=== PATIENT | male | born 1990 | race Caucasian/White ===

== ENCOUNTER 2023-01-22 07:18 | Day surgery (SDC) | payer BC ==
[~2023-01-22 07:18] MED LIST: Lactated Ringers 1,000 ML IV SCH; Sodium Chloride 0.9% 10 ML Syringe FLUSH PRN
[2023-01-22] MEDS ORDERED: Propofol 200 MG/20 ML SDV IV ONE (07:19)
[2023-01-22] MEDS ORDERED: Midazolam 1 MG/ML 2 ML SDV IV ONE (07:19)
[2023-01-22] MEDS ORDERED: Simethicone Drops 40 MG/0.6 ML 30 ML Bottle ONE (09:03)
== END 2023-01-22 10:28 | disposition home or self-care (01) ==
LOC: FB.SDS 07:18
PROVIDERS: ATTEND Surgery
DX: K92.1 Melena (principal); K62.89 Other specified diseases of anus and rectum; Z79.899 Other long term (current) drug therapy
CPT/HCPCS: 00811; A9270-GY; J2250; J2704; J7120